=== PATIENT | male | born 1955 | race Caucasian/White ===

== ENCOUNTER 2017-10-31 17:51 | Inpatient (IN) | payer OTHER ==
[~2017-10-31] VITALS: Ht 170.2 cm; Wt 106.6 kg
[~2017-10-31 17:51] MED LIST: ADVAIRDISKUS IH; ALBUTEROL2.5 MG/32 INH; AVELOX 400 MG400 MG PO; CEFTIN500 MG PO; CELECOXIB; DICLOFENAC SODI75 MG PO; DUONEB 2.5-0.5 M3 ML INH; HYDROCODON-ACE1 EAC1 PO; KLOR-CON 1010 MEQ PO; LASIX 20 MG TAB20 MG PO; LEVAQUIN 500 M500 M2 PO; METFORMIN HCL500 MG PO; MUCINEX TA600 MG/TA1 PO; MUCINEX600 MG PO; NIACIN 100MG T100 M1 PO; NICOTINE TRANSD14 M1 TD; NICOTINE TRANSD21 M1 TRANSDERM; OMEPRAZOLE20 M2 PO; PREDNISONE 10 M10 M1 PO; PREDNISONE 10 M10 MG; PROVENTIL; PROZAC20 MG PO; SYMBICORT160 MCG/4. INH; VENTOLIN HFA 1818 GM INH; ZYRTEC10 M5 PO
[2017-10-31 18:05] VITALS: BP 132/68
[2017-10-31 18:30] LABS: HEMATOCRIT 47.7 % (42.0-52.0); MCH 27.3 pg (26.0-34.0); MCHC 31.5 g/dL (28.0-37.0); MCV 86.6 fL (80.0-100.0); MPV 7.5 fl. (7.2-11.1); NUCLEATED RBCS 0 /100WBC; PLATELET COUNT* 170 thou/uL (150-400); RBC 5.51 mil/uL (4.50-6.00); RDW-CV 14.7 % (10.5-14.5)
[2017-10-31 18:40] LABS: ANION GAP 10 mmol/L (7-16); BUN 9 mg/dL (7-18); CALCIUM 9.2 mg/dL (8.5-10.1); CHLORIDE 96 mmol/L (98-107); CO2 32 mmol/L (21-32); CREATININE 0.7 mg/dL (0.6-1.3); GLUCOSE 149 mg/dL (70-99); POTASSIUM 3.8 mmol/L (3.5-5.1); SODIUM 138 mmol/L (136-145)
[2017-10-31 18:51] LABS: ALBUMIN 3.7 g/dL (3.4-5.0); ALKALINE PHOSPHATASE 65 U/L (46-116); NT-PRO BRAIN NAT PEPTIDE 100 pg/mL (<300); SGOT 13 U/L (15-37); SGPT 18 U/L (30-65); TOTAL BILIRUBIN 0.9 mg/dL (<0.1-1.0); TOTAL PROTEIN 7.6 g/dL (6.4-8.2); TROPONIN-I LEVEL <0.06 ng/mL (<0.06)
[2017-10-31 18:57] LABS: ABSOLUTE EOSINOPHILS 0.2 thou/uL (0.0-0.7); ABSOLUTE LYMPHOCYTES 0.9 thou/uL (0.8-5.3); ABSOLUTE MONOCYTES 1.8 thou/uL (0.0-1.2); ABSOLUTE NEUTROPHILS 19.1 thou/uL (1.6-8.1); PLATELET ESTIMATE ADEQUATE
[2017-10-31 19:10] LABS: INFLUENZA A ANTIGEN None Detected (None Detect); INFLUENZA B ANTIGEN None Detected (None Detect)
[2017-10-31 21:10] VITALS: BP 128/74
[2017-10-31 21:40] VITALS: BP 131/64
[2017-10-31] MEDS ORDERED: TYLENOL325 MG PO (21:52)
[2017-10-31] MEDS ORDERED: MUCINEX1200 MG PO (21:54)
[2017-10-31] MEDS ORDERED: INCRUSE ELLI62.5 MCG INH (21:55)
[2017-11-01] VITALS: BP 129/68
[2017-11-01 04:00] VITALS: BP 117/67
--- NOTE | 2017-11-01 07:46 | NUR ---
PT WAS ADMITTED TO ROOM 207 DURING THIS SHIFT; VSS, A+O X4 AND ON 4L O2 NC. HE IS ABLE TO COMMUNICATE HIS NEEDS TO STAFF EFFECTIVELY. CURRRENT PAIN MEDICATION REGIMEN HAS BEEN ADEQUATE FOR CONTROLLING HIS PAIN UP TO THIS TIME.
[2017-11-01 08:31] VITALS: BP 120/72
--- NOTE | 2017-11-01 08:46 | NUR ---
ASSUMED CARE OF PT AROUND 0700 THIS AM. REFER TO ASSESSMENT. VSS. PT WEARS HOME CPAP AT NOC. 4L O2/NC DURING DAY. REPORTS HOME DOSE 3-4 L. PT UP AD PEDRO LUIS. TELE SR W/ BBB. PT VOICES NO CONCERNS THIS AM. CLWR. WCTM.
[2017-11-01 11:46] VITALS: BP 127/67
--- NOTE | 2017-11-01 14:25 | NUR ---
CM ASSESSMENT: Pt was asleep when CM went to assess, spoke with Pt's on the phone. Pt is normally independent with ADLs, continues to drive. states that he is able to do most things, but tends to tire easy, available to assist as needed. Pt wears home o2 and has a Trilogy through [employer]. Pt also has a home neb. No other DME equipment. Hx of [facility]. No hx of SNF. Per , goal is for Pt to return home once medically stable for dc. Following
--- NOTE | 2017-11-01 16:25 | NUR ---
PT TO MOVE TO ROOM 308. REPORT GIVEN TO ONCOMING NURSE. PT WILL BE TRANSFERRED WITH ALL BELONGINGS. NO OTHER CONCERNS AT THIS TIME. CLWR. WCTM.
[2017-11-01 16:30] VITALS: BP 97/79
--- NOTE | 2017-11-01 16:39 | EKG ---
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1955 Requested By: Lila Shaikh Order Number: [id number] MD: Abhinav Villasenor Measurements Intervals [place] Rate: 97 P: -34 [place]: 144 QRS: 148 QRSD: 160 T: -11 QT: 414 QTc: 526 Interpretive Statements Sinus rhythm Probable left atrial enlargement RBBB and LPFB Compared to ECG 03/29/2016 16:08:13 Sinus tachycardia no longer present Electronically Signed On 11-01-2017 16:39:39 [employer] RE[employer] by Abhinav Villasenor [email or web address] <ELECTRONICALLY SIGNED> By: Abhinav Villasenor MD, [facility] 11/01/17 1639 10 10 Abhinav Villasenor MD, [facility] /EPI
[2017-11-01 17:30] VITALS: BP 126/55
--- NOTE | 2017-11-01 18:29 | NUR ---
PT TRANSFERED TO ROOM 308 AT APPROX 1700, RECIEVED REPORT FROM HERNAN KRAUSE. PT A/O X4, UP AD PEDRO LUIS IN ROOM, ON 4L O2 PER NC. LUNGS DIM, CLR. PT C/O SOME PAIN IN UPPER ABDOMEN/RIBS. PT GIVEN PAIN MEDS. TEMP 99.9 AX, ALL OTHER VSS. WILL CONTINUE WITH PLAN OF CARE.
[2017-11-02 00:24] VITALS: BP 122/65
[2017-11-02 04:47] LABS: CALCIUM 8.5 mg/dL (8.5-10.1); CREATININE 0.8 mg/dL (0.6-1.3); MAGNESIUM 2.2 mg/dL (1.8-2.4); POTASSIUM 4.1 mmol/L (3.5-5.1)
[2017-11-02 04:56] LABS: HEMATOCRIT 42.9 % (42.0-52.0); HEMOGLOBIN 13.7 gm/dL (14.0-18.0); MCH 27.2 pg (26.0-34.0); MCHC 31.9 g/dL (28.0-37.0); MCV 85.3 fL (80.0-100.0); MPV 7.5 fl. (7.2-11.1); RBC 5.04 mil/uL (4.50-6.00); RDW-CV 14.6 % (10.5-14.5); WBC 14.3 thou/uL (4.0-11.0)
[2017-11-02 07:40] VITALS: BP 104/61
[2017-11-02 16:00] VITALS: BP 112/61
--- NOTE | 2017-11-02 18:51 | NUR ---
PATIENT A&OX4, 3L O2 VIA NC, IV LEFT AC SALINE LOCK WITH IV ABX. UP AD PEDRO LUIS, STEADY GAIT. NO C/O PAIN/N/V. NO OTHER CONCERNS AT THIS TIME. APPROPRIATE AND COOPORATIVE WITH CARE.
[2017-11-03] VITALS: BP 113/66
--- NOTE | 2017-11-03 04:30 | NUR ---
PATIENT SLEPT WELL DURING THIS SHIFT. PT DENIES PAIN/NAUSEA. PT ON O2 @ 4 LITERS PER NASAL CANNULA. PT IS UP AD PEDRO LUIS IN ROOM. PT WITH DIMINISHED LUNG SOUNDS. FREQUENTLY USED ITEMS AND CALL LIGHT WITHIN REACH. SIDERAILS UPX2. WILL CONTINUE TO MONITOR.
[2017-11-03 04:44] LABS: ABSOLUTE BASOPHILS 0.1 thou/uL (0.0-0.2); ABSOLUTE EOSINOPHILS 0.4 thou/uL (0.0-0.7); ABSOLUTE LYMPHOCYTES 1.9 thou/uL (0.8-5.3); ABSOLUTE MONOCYTES 1.2 thou/uL (0.0-1.2); ABSOLUTE NEUTROPHILS 7.2 thou/uL (1.6-8.1); BASOPHILS 0.8 %; EOSINOPHILS 3.3 %; HEMATOCRIT 38.8 % (42.0-52.0); HEMOGLOBIN 12.9 gm/dL (14.0-18.0); LYMPHOCYTES 17.6 %; MCH 27.7 pg (26.0-34.0); MCHC 33.2 g/dL (28.0-37.0); MCV 83.2 fL (80.0-100.0); MONOCYTES 11.1 %; MPV 7.6 fl. (7.2-11.1); NUCLEATED RBCS 0 /100WBC; PLATELET COUNT* 154 thou/uL (150-400); POLYS 67.2 %; RBC 4.66 mil/uL (4.50-6.00); RDW-CV 14.3 % (10.5-14.5); WBC 10.8 thou/uL (4.0-11.0)
[2017-11-03 05:14] LABS: ALBUMIN 2.8 g/dL (3.4-5.0); CALCIUM 8.5 mg/dL (8.5-10.1); CREATININE 0.7 mg/dL (0.6-1.3); POTASSIUM 3.5 mmol/L (3.5-5.1); TOTAL BILIRUBIN 0.2 mg/dL (<0.1-1.0); TOTAL PROTEIN 6.5 g/dL (6.4-8.2)
[2017-11-03 08:25] VITALS: BP 122/62
--- NOTE | 2017-11-03 09:23 | NUR ---
P.T. ORDERS RECEIVED. CHART REVIEWED. NSG NOTES, NSG, AND PT INDICATE PT UP AD PEDRO LUIS W/ STEADY GAIT. PT REPORTS NO DIFFICULTIES OR CONCERNS WITH MOBILITY. NO ACUTE P.T. INTERVENTION INDICATED AT THIS TIME.
--- NOTE | 2017-11-03 09:43 | NUR ---
OT ORDERS RECEIVED. CHART REVIEWED. PT AND NURSING REPORT NO CONCERN. THERAPIST TALKED WITH PT REGARDING SELF CARE AND ADLS TO RETURN HOME. PT AGAIN, REPORTS NO CONCERNS. NO ACUTE OT INTERVENTION INDICATED.
[2017-11-03 12:13] VITALS: BP 113/66
[2017-11-03] MEDS ORDERED: PROTONIX40 M1 PO (12:21)
[2017-11-03] MEDS ORDERED: NICOTINE TRANSD14 M1 TRANSDERM (12:21)
[2017-11-03] MEDS ORDERED: LEVAQUIN 750 M750 MG PO (12:22)
[2017-11-03] MEDS ORDERED: PREDNISONE 10 M10 MG PO (12:24)
--- NOTE | 2017-11-03 13:20 | NUR ---
PATIENT GIVEN DISCHARGE AND PRESCRIPTIONS AT THIS TIME. PATIENT AND FAMILY VERBALIZED UNDERSTANDING IN REGARDS TO FOLLOW UP APPOINTMENTS, AND NEW MEDICATIONS. PATIENT DISCHARGED TO HOME WITH ALL BELONGINGS. ESCORTED OFF NURSING UNIT VIA WHEELCHAIR WITH NURSING STAFF.
== END 2017-11-03 13:25 | disposition home or self-care (01) | DRG 871 ==
LOC: M.ERS 17:51 → M.2W 19:29 → M.TBA-ER 19:29 → M.2W 21:15 → M.3W 11-01 16:31
PROVIDERS: Internal Medicine; Nurse Practitioner Family; ADMIT Internal Medicine
DX: A41.9 Sepsis, unspecified organism (principal); J96.21 Acute and chronic respiratory failure with hypoxia; J15.6 Pneumonia due to other Gram-negative bacteria; J44.0 Chronic obstructive pulmonary disease with (acute) lower respiratory infection; Z96.653 Presence of artificial knee joint, bilateral; F17.210 Nicotine dependence, cigarettes, uncomplicated; E11.9 Type 2 diabetes mellitus without complications; Z79.899 Other long term (current) drug therapy

== ENCOUNTER 2019-01-18 10:19 | Inpatient (IN) | payer OTHER ==
[~2019-01-18] VITALS: Ht 152.4 cm; Wt 115.2 kg
[~2019-01-18 10:19] MED LIST changes: +INCRUSE ELLI62.5 MCG INH; +LEVAQUIN 750 M750 MG PO; +MUCINEX1200 MG PO; +NICOTINE TRANSD14 M1 TRANSDERM; +PREDNISONE 10 M10 MG PO; +PROTONIX40 M1 PO; -ZYRTEC10 M5 PO
[2019-01-18 10:25] VITALS: BP 165/88
[2019-01-18] MEDS ORDERED: KLOR-CON 1010 MEQ PO (10:40)
[2019-01-18] MEDS ORDERED: INCRUSE ELLI62.5 MCG INH (10:40)
[2019-01-18] MEDS ORDERED: MUCINEX1200 MG PO (10:40)
[2019-01-18] MEDS ORDERED: D3 + K2 DOTS 11 EACH PO (10:41)
[2019-01-18] MEDS ORDERED: APAP650 PO (10:41)
[2019-01-18] MEDS ORDERED: CHILDREN'S ASPI81 M1 PO (10:41)
[2019-01-18] MEDS ORDERED: GEMFIBROZIL 60600 M1 PO (10:42)
[2019-01-18] MEDS ORDERED: LISINOPRIL10 MG PO (10:42)
[2019-01-18] MEDS ORDERED: XALATAN2.5 ML OPHTHALMIC (10:42)
[2019-01-18] MEDS ORDERED: ZYRTEC10 M4 PO (10:42)
[2019-01-18] MEDS ORDERED: IBUPROFEN 800800 M1 PO (10:43)
[2019-01-18] MEDS ORDERED: VENTOLIN HFA 1818 GM INH (10:43)
[2019-01-18 11:08] LABS: ABSOLUTE BASOPHILS 0.1 thou/uL (0.0-0.2); ABSOLUTE EOSINOPHILS 0.2 thou/uL (0.0-0.7); ABSOLUTE LYMPHOCYTES 1.6 thou/uL (0.8-5.3); ABSOLUTE MONOCYTES 0.8 thou/uL (0.0-1.2); ABSOLUTE NEUTROPHILS 5.1 thou/uL (1.6-8.1); BASOPHILS 1.3 %; HEMATOCRIT 37.6 % (42.0-52.0); HEMOGLOBIN 12.8 gm/dL (14.0-18.0); MCH 27.9 pg (26.0-34.0); MCHC 34.1 g/dL (28.0-37.0); MCV 81.8 fL (80.0-100.0); MONOCYTES 9.6 %; MPV 7.8 fl. (7.2-11.1); NUCLEATED RBCS 0 /100WBC; PLATELET COUNT* 209 thou/uL (150-400); POLYS 65.1 %; RBC 4.59 mil/uL (4.50-6.00); RDW-CV 14.8 % (10.5-14.5); WBC 7.8 thou/uL (4.0-11.0)
[2019-01-18 11:10] VITALS: BP 118/55
[2019-01-18 11:16] LABS: PROTIME 9.8 Seconds (9.20-11.50)
[2019-01-18 11:23] LABS: BE 3.2 mmol/L (-2 to +3); PO2 77.2 mmHg (75.0-100.0); pH 7.346 (7.340-7.450)
[2019-01-18 11:24] LABS: PCO2 56.3 mmHg (35.0-45.0)
[2019-01-18 11:26] LABS: ANION GAP 7 mmol/L (7-16); BUN 13 mg/dL (7-18); CALCIUM 8.6 mg/dL (8.5-10.1); CHLORIDE 100 mmol/L (98-107); CO2 31 mmol/L (21-32); CREATININE 0.8 mg/dL (0.6-1.3); GLUCOSE 374 mg/dL (70-99); POTASSIUM 4.5 mmol/L (3.5-5.1); SODIUM 138 mmol/L (136-145); TROPONIN-I LEVEL <0.06 ng/mL (<0.06)
[2019-01-18 11:29] LABS: ALBUMIN 3.5 g/dL (3.4-5.0); ALKALINE PHOSPHATASE 78 U/L (46-116); MAGNESIUM 1.9 mg/dL (1.8-2.4); NT-PRO BRAIN NAT PEPTIDE 46 pg/mL (<300); TOTAL BILIRUBIN 0.3 mg/dL (<0.1-1.0); TOTAL PROTEIN 7.4 g/dL (6.4-8.2)
[2019-01-18 11:40] LABS: URINE BILIRUBIN NEGATIVE (Negative); URINE BLOOD NEGATIVE (Negative); URINE CLARITY CLEAR; URINE COLOR YELLOW; URINE GLUCOSE-RANDOM 3+ (Negative); URINE KETONES NEGATIVE (Negative); URINE LEUKOCYTES-REFLEX NEGATIVE (Negative); URINE NITRITE-REFLEX NEGATIVE (Negative); URINE PROTEIN NEGATIVE (Negative); URINE UROBILINOGEN 0.2 E.U./dl (0.2-1.0)
[2019-01-18 12:13] LABS: SGOT 16 U/L (15-37); SGPT 28 U/L (30-65)
[2019-01-18 14:51] VITALS: BP 135/77
--- NOTE | 2019-01-18 15:19 | 2DMMODE ---
[place] [address] 2 D/M-MODE ECHOCARDIOGRAM Name: DEMETRIS SERRA Room: [address] IN [facility]#: [id number] Admission: 01/18/19 Attend Phys: Remi Carpenter, Discharge: Date of : 57 Date of Service: 01/18/19 1519 Report #: [id number] THIS REPORT FOR: //name// APPROVED REPORT Study performed: 01/18/2019 13:56:51 EXAM: Comprehensive 2D, Doppler, and color-flow Echocardiogram Patient Location: In-Patient Room #: er Status: routine BSA: 2.25 HR: 92 bpm BP: 124/66 mmHg Rhythm: NSR Other Information Study Quality: Good Indications Dyspnea 2D Dimensions IVSd: 13.46 (7-11mm) LVOT Diam: 19.69 (18-24mm) LVDd: 56.44 mm PWd: 11.18 (7-11mm) Ascending Ao: 37.96 (22-36mm) LVDs: 28.00 (25-40mm) Aortic Root: 37.58 mm Volumes Left Atrial Volume (Systole) LA ESV Index: 27.00 mL/m2 Aortic Valve AoV Peak Ward.: 1.81 m/s AO Peak Gr.: 13.09 mmHg LVOT Max P.89 mmHg AO Mean Gr.: 7.08 mmHg LVOT Mean P.40 mmHg LVOT Max V: 1.31 m/s AO V2 VTI: 29.96 cm LVOT Mean V: 0.84 m/s RENATA (VTI): 2.20 cm2 LVOT V1 VTI: 21.63 cm Mitral Valve E/A Ratio: 0.89 MV Decel. Time: 175.31 ms MV E Max Ward.: 0.92 m/[place] [address] 2 D/M-MODE ECHOCARDIOGRAM Name: DEMETRIS SERRA Room: [address] IN .R.#: [id number] Admission: 01/18/19 Attend Phys: Remi Carpenter, Discharge: Date of : 57 Date of Service: 01/18/19 1519 Report #: [id number] MV PHT: 50.84 ms MVA (PHT): 4.33 cm2 TDI E/Lateral E': 6.57 E/Medial E': 7.67 Medial E' Ward.: 0.12 m/s Lateral E' Ward.: 0.14 m/s Pulmonary Valve PV Peak Ward.: 1.14 m/s PV Peak Gr.: 5.24 mmHg Left Ventricle The left ventricle is normal size. There is left ventricular systolic dysynergy consistent with underlying bundle branch block. There is normal left ventricular wall thickness. Left ventricular systolic function is normal. LVEF is 55-60%. Grade I - abnormal relaxation pattern. Right Ventricle The right ventricle is normal size. The right ventricular systolic function is normal. Atria Left atrium is moderately dilated. Right atrium is moderately dilated. Aortic Valve Mild aortic valve sclerosis. No aortic regurgitation is present. There is no aortic valvular stenosis. Mitral Valve The mitral valve is normal in structure. There is no mitral valve regurgitation noted. No evidence of mitral valve stenosis. Tricuspid Valve The tricuspid valve is normal in structure. Unable to assess PA pressure. Trace tricuspid regurgitation. Pulmonic Valve The pulmonary valve is normal in structure. There is no pulmonic valvular regurgitation. Great Vessels The aortic root is normal in size. IVC is normal in size and collapses >50% [place] [address] 2 D/M-MODE ECHOCARDIOGRAM Name: DEMETRIS SERRA Room: [address] IN [facility]#: [id number] Admission: 01/18/19 Attend Phys: Remi Carpenter, Discharge: Date of : 57 Date of Service: 01/18/19 1519 Report #: [id number] Pericardium There is no pericardial effusion. <Conclusion> The left ventricle is normal size. There is normal left ventricular wall thickness. Left ventricular systolic function is normal. LVEF is 55-60%. Grade I - abnormal relaxation pattern. There is left ventricular systolic dysynergy consistent with underlying bundle branch block. Left atrium is moderately dilated. Right atrium is moderately dilated. Mild aortic valve sclerosis. There is no aortic valvular stenosis. Trace tricuspid regurgitation. <ELECTRONICALLY SIGNED> By: Pablo Morley MD, FACC 01/18/19 1519 1519 151 Pablo Morley MD, FACC /INF
[2019-01-18 15:30] VITALS: BP 131/68
--- NOTE | 2019-01-18 18:25 | EKG ---
[place] [address] ELECTROCARDIOGRAM REPORT Name: DEMETRIS SERRA Room: [address] ADM IN M.R.#: [id number] Admission: 01/18/19 Attend Phys: Remi Carpenter MD Discharge: Date of : 57 Report #: [id number] THIS REPORT FOR: //name// [facility] ED Test Date: 2019-01-18 Test Time: 10:25:19 Pat Name: DEMETRIS SERRA Department: Room: [facility] Gender: Resident Care Associate: Antwan BERGERON : 1955 Requested By: Rosemarie Brito Order Number: [id number] Gaby MD: Pablo Morley Measurements Intervals [place] Rate: 97 P: -12 [place]: 172 QRS: 113 QRSD: 163 T: -23 QT: 384 QTc: 488 Interpretive Statements Sinus rhythm RBBB and LPFB Baseline wander in lead(s) V2 Compared to ECG 10/31/2017 19:11:29 No significant changes Electronically Signed On 01-18-2019 18:24:57 CDT by Pablo Morley [email or web address] <ELECTRONICALLY SIGNED> By: Pablo Morley MD, FACC 01/18/19 1824 1025 1025 Pablo Morley MD, FAC /EPI
[2019-01-18 19:55] VITALS: BP 129/71
[2019-01-19] VITALS (7 sets, daily range): BP systolic 121–132; BP diastolic 61–69
[2019-01-19 02:09] LABS: GLYCOHEMOGLOBIN (HGB A1C) 8.3 % (4.8-5.6)
[2019-01-19 05:12] LABS: CHOLESTEROL 290 mg/dL (<200); HDL CHOLESTEROL 45 mg/dL (>40); TC:HDL 6.4 Ratio (Not establshd); TRIGLYCERIDE 958 mg/dL (<150); VLDL 192 mg/dL (<40)
[2019-01-19 05:14] LABS: LDL CHOLESTEROL ND mg/dL (<100); SERUM ASSESSMENT Slight Lipemia
[2019-01-20] VITALS: BP 115/61
[2019-01-20 04:00] VITALS: BP 106/56
[2019-01-20 08:00] VITALS: BP 111/60; BP 128/73
[2019-01-20 12:00] VITALS: BP 105/63
[2019-01-20 16:00] VITALS: BP 104/63
[2019-01-20 20:00] VITALS: BP 126/66
[2019-01-21] VITALS: BP 110/56
[2019-01-21 04:00] VITALS: BP 109/48
[2019-01-21 05:34] LABS: CALCIUM 8.6 mg/dL (8.5-10.1); CREATININE 0.8 mg/dL (0.6-1.3); MAGNESIUM 2.3 mg/dL (1.8-2.4); POTASSIUM 4.7 mmol/L (3.5-5.1)
[2019-01-21 08:00] VITALS: BP 109/61
[2019-01-21] MEDS ORDERED: ATORVASTATIN CA80 MG PO (09:53)
[2019-01-21] MEDS ORDERED: ZETIA10 MG PO (09:53)
[2019-01-21] MEDS ORDERED: METFORMIN HCL1000 MG PO (09:53)
[2019-01-21] MEDS ORDERED: AZITHROMYCIN 2250 MG PO (09:53)
[2019-01-21] MEDS ORDERED: CEFDINIR300 MG PO (09:53)
[2019-01-21] MEDS ORDERED: GLIPIZIDE 10 MG10 MG PO (09:53)
[2019-01-21] MEDS ORDERED: SINGULAIR 10 MG10 M1 PO (09:53)
[2019-01-21] MEDS ORDERED: PREDNISONE 10 M10 MG PO (09:54)
[2019-01-21] MEDS ORDERED: GLUCOTROL5 MG PO (09:55)
[2019-01-21 12:00] VITALS: BP 131/72
[2019-01-21] MEDS ORDERED: TYLENOL325 MG PO (15:35)
[2019-01-21] MEDS ORDERED: LIPITOR40 MG PO (15:36)
[2019-01-21] MEDS ORDERED: ZYRTEC10 M5 PO (15:46)
[2019-01-21 15:48] VITALS: BP 131/72
== END 2019-01-21 18:10 | disposition home or self-care (01) | DRG 177 ==
LOC: M.ERS 10:19 → M.TBA-ER 12:07 → M.2W 12:07
PROVIDERS: Personal Emergency Response Attendant; ADMIT Internal Medicine
PROC: 5A09357 Assistance with Respiratory Ventilation, Less than 24 Consecutive Hours, Continuous Positive Airway Pressure (ICD-10-PCS; principal; 2019-01-19)
PROC: 5A09357 Assistance with Respiratory Ventilation, Less than 24 Consecutive Hours, Continuous Positive Airway Pressure (ICD-10-PCS; 2019-01-20)
DX: J15.6 Pneumonia due to other Gram-negative bacteria (principal); J96.22 Acute and chronic respiratory failure with hypercapnia; J96.21 Acute and chronic respiratory failure with hypoxia; J44.0 Chronic obstructive pulmonary disease with (acute) lower respiratory infection; J44.1 Chronic obstructive pulmonary disease with (acute) exacerbation; I50.32 Chronic diastolic (congestive) heart failure; Z68.42 Body mass index [BMI] 45.0-49.9, adult; Z96.653 Presence of artificial knee joint, bilateral; G47.33 Obstructive sleep apnea (adult) (pediatric); F17.210 Nicotine dependence, cigarettes, uncomplicated; E66.01 Morbid (severe) obesity due to excess calories; E11.65 Type 2 diabetes mellitus with hyperglycemia; I11.0 Hypertensive heart disease with heart failure; E78.5 Hyperlipidemia, unspecified; E78.1 Pure hyperglyceridemia; Z79.84 Long term (current) use of oral hypoglycemic drugs; Z79.82 Long term (current) use of aspirin

== ENCOUNTER 2019-07-03 21:57 | Inpatient (IN) | payer OTHER ==
[~2019-07-03] VITALS: Ht 170.2 cm; Wt 117.9 kg
[~2019-07-03 21:57] MED LIST changes: +APAP650 PO; +ATORVASTATIN CA80 MG PO; +AZITHROMYCIN 2250 MG PO; +CEFDINIR300 MG PO; +CHILDREN'S ASPI81 M1 PO; +D3 + K2 DOTS 11 EACH PO; +GEMFIBROZIL 60600 M1 PO; +GLIPIZIDE 10 MG10 MG PO; +GLUCOTROL5 MG PO; +IBUPROFEN 800800 M1 PO; +LIPITOR40 MG PO; +LISINOPRIL10 MG PO; +METFORMIN HCL1000 MG PO; +SINGULAIR 10 MG10 M1 PO; +TYLENOL325 MG PO; +XALATAN2.5 ML OPHTHALMIC; +ZETIA10 MG PO; +ZYRTEC10 M4 PO; +ZYRTEC10 M5 PO
[2019-07-03 22:02] VITALS: BP 177/74
[2019-07-03] MEDS ORDERED: GLIPIZIDE 10 MG10 MG PO (22:15)
[2019-07-03] MEDS ORDERED: GLUCOTROL5 MG PO (22:15)
[2019-07-03 22:34] LABS: ABSOLUTE BASOPHILS 0.1 thou/uL (0.0-0.2); ABSOLUTE EOSINOPHILS 0.3 thou/uL (0.0-0.7); ABSOLUTE LYMPHOCYTES 1.9 thou/uL (0.8-5.3); ABSOLUTE MONOCYTES 0.9 thou/uL (0.0-1.2); ABSOLUTE NEUTROPHILS 6.5 thou/uL (1.6-8.1); BASOPHILS 1.5 %; EOSINOPHILS 2.8 %; HEMATOCRIT 38.9 % (42.0-52.0); HEMOGLOBIN 12.9 gm/dL (14.0-18.0); LYMPHOCYTES 19.5 %; MCH 27.2 pg (26.0-34.0); MCHC 33.2 g/dL (28.0-37.0); MPV 7.1 fl. (7.2-11.1); NUCLEATED RBCS 0 /100WBC; PLATELET COUNT* 228 thou/uL (150-400); POLYS 67.2 %; RBC 4.75 mil/uL (4.50-6.00); RDW-CV 15.8 % (10.5-14.5); WBC 9.6 thou/uL (4.0-11.0)
[2019-07-03 22:44] LABS: ANION GAP 8 mmol/L (7-16); APTT 23.8 Seconds (25.0-31.3); BUN 23 mg/dL (7-18); CALCIUM 8.6 mg/dL (8.5-10.1); CHLORIDE 101 mmol/L (98-107); CO2 31 mmol/L (21-32); CREATININE 0.9 mg/dL (0.6-1.3); GLUCOSE 259 mg/dL (70-99); INR 0.9; POTASSIUM 4.9 mmol/L (3.5-5.1); PROTIME 9.6 Seconds (9.20-11.50); SODIUM 140 mmol/L (136-145)
[2019-07-03 22:55] LABS: ALBUMIN 3.5 g/dL (3.4-5.0); ALKALINE PHOSPHATASE 87 U/L (46-116); LIPASE 127 U/L (73-393); MAGNESIUM 1.9 mg/dL (1.8-2.4); NT-PRO BRAIN NAT PEPTIDE 28 pg/mL (<300); SGOT 13 U/L (15-37); SGPT 30 U/L (30-65); TOTAL BILIRUBIN 0.2 mg/dL (<0.1-1.0); TOTAL PROTEIN 7.2 g/dL (6.4-8.2); TROPONIN-I LEVEL <0.06 ng/mL (<0.06)
[2019-07-03 23:23] VITALS: BP 127/54
[2019-07-03 23:45] VITALS: BP 128/66
[2019-07-04 07:50] VITALS: BP 125/53
[2019-07-04 09:23] LABS: MAGNESIUM 2.1 mg/dL (1.8-2.4); POTASSIUM 5.8 mmol/L (3.5-5.1)
--- NOTE | 2019-07-04 11:18 | EKG ---
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1955 Requested By: Carlos Carranza Order Number: [id number] MD: Abhinav Villasenor Measurements Intervals [place] Rate: 103 P: -29 [place]: 167 QRS: 120 QRSD: 150 T: -8 QT: 374 QTc: 490 Interpretive Statements Sinus tachycardia Right bundle branch block and left posterior fasicular block Baseline wander in lead(s) V1 Compared to ECG 01/18/2019 10:25:19 Sinus rhythm no longer present Electronically Signed On 07-04-2019 11:18:09 CDT by Abhinav Villasenor [email or web address] <ELECTRONICALLY SIGNED> By: Abhinav Villasenor MD, [facility] 07/04/19 1118 05 Abhinav Villasenor MD, [facility] /EPI
[2019-07-04 14:25] VITALS: BP 111/51
[2019-07-04 20:00] VITALS: BP 138/65
[2019-07-05 04:13] LABS: HEMATOCRIT 36.5 % (42.0-52.0); HEMOGLOBIN 11.9 gm/dL (14.0-18.0); MCH 26.8 pg (26.0-34.0); MCHC 32.7 g/dL (28.0-37.0); MCV 81.9 fL (80.0-100.0); MPV 7.3 fl. (7.2-11.1); RBC 4.46 mil/uL (4.50-6.00); RDW-CV 15.8 % (10.5-14.5); WBC 14.6 thou/uL (4.0-11.0)
[2019-07-05 04:21] LABS: CALCIUM 8.6 mg/dL (8.5-10.1); CREATININE 0.9 mg/dL (0.6-1.3); MAGNESIUM 2.1 mg/dL (1.8-2.4)
[2019-07-05 07:08] LABS: GLYCOHEMOGLOBIN (HGB A1C) 7.2 % (4.8-5.6)
[2019-07-05 08:00] VITALS: BP 120/69
[2019-07-05 16:00] VITALS: BP 146/68
[2019-07-05 22:20] VITALS: BP 118/64
[2019-07-06 07:55] VITALS: BP 141/77
[2019-07-06] MEDS ORDERED: CEFDINIR300 MG PO (12:44)
[2019-07-06] MEDS ORDERED: PREDNISONE 10 M10 MG PO (12:44)
== END 2019-07-06 13:55 | disposition home or self-care (01) | DRG 177 ==
LOC: M.ERS 21:57 → M.TBA-ER 22:49 → M.3W 22:49
PROVIDERS: Family Medicine; Internal Medicine; ADMIT Internal Medicine
PROC: 5A09357 Assistance with Respiratory Ventilation, Less than 24 Consecutive Hours, Continuous Positive Airway Pressure (ICD-10-PCS; principal; 2019-07-03)
PROC: 5A09357 Assistance with Respiratory Ventilation, Less than 24 Consecutive Hours, Continuous Positive Airway Pressure (ICD-10-PCS; 2019-07-04)
PROC: 5A09357 Assistance with Respiratory Ventilation, Less than 24 Consecutive Hours, Continuous Positive Airway Pressure (ICD-10-PCS; 2019-07-05)
PROC: 5A09357 Assistance with Respiratory Ventilation, Less than 24 Consecutive Hours, Continuous Positive Airway Pressure (ICD-10-PCS; 2019-07-06)
DX: J15.6 Pneumonia due to other Gram-negative bacteria (principal); J96.21 Acute and chronic respiratory failure with hypoxia; I50.33 Acute on chronic diastolic (congestive) heart failure; J44.1 Chronic obstructive pulmonary disease with (acute) exacerbation; Z68.41 Body mass index [BMI] 40.0-44.9, adult; J44.0 Chronic obstructive pulmonary disease with (acute) lower respiratory infection; Z96.653 Presence of artificial knee joint, bilateral; M19.90 Unspecified osteoarthritis, unspecified site; G47.33 Obstructive sleep apnea (adult) (pediatric); E78.5 Hyperlipidemia, unspecified; E66.01 Morbid (severe) obesity due to excess calories; F17.210 Nicotine dependence, cigarettes, uncomplicated; F32.9 Major depressive disorder, single episode, unspecified; T38.0X5A Adverse effect of glucocorticoids and synthetic analogues, initial encounter; Y92.89 Other specified places as the place of occurrence of the external cause; E11.65 Type 2 diabetes mellitus with hyperglycemia

== ENCOUNTER → 2019-07-12 | Outpatient (CLI) | payer OTHER ==
[~2019-07-12] MED LIST changes: +DALIRESP250 MCG PO; +JARDIANCE10 MG PO; +NORCO 5-325 TA1 EAC1 PO
== END ==
LOC: M.CT 12:28
DX: J43.2 Centrilobular emphysema (principal); I70.0 Atherosclerosis of aorta; K76.0 Fatty (change of) liver, not elsewhere classified

== ENCOUNTER 2019-07-28 17:08 | Emergency (ER) | payer OTHER ==
[~2019-07-28] VITALS: Ht 170.2 cm; Wt 115.7 kg
[~2019-07-28 17:08] MED LIST changes: -DALIRESP250 MCG PO; -JARDIANCE10 MG PO; -NORCO 5-325 TA1 EAC1 PO
[2019-07-28] MEDS ORDERED: JARDIANCE10 MG PO (18:17)
[2019-07-28] MEDS ORDERED: DALIRESP250 MCG PO (18:18)
[2019-07-28] MEDS ORDERED: NORCO 5-325 TA1 EAC1 PO (19:27)
[2019-07-28 19:52] VITALS: BP 135/87
== END 2019-07-28 19:58 | disposition home or self-care (01) ==
LOC: M.ERS 17:08
DX: S16.1XXA Strain of muscle, fascia and tendon at neck level, initial encounter (principal); S00.01XA Abrasion of scalp, initial encounter; M25.552 Pain in left hip; E78.5 Hyperlipidemia, unspecified; J44.9 Chronic obstructive pulmonary disease, unspecified; M19.90 Unspecified osteoarthritis, unspecified site; E11.9 Type 2 diabetes mellitus without complications; G47.33 Obstructive sleep apnea (adult) (pediatric); I50.32 Chronic diastolic (congestive) heart failure; E66.01 Morbid (severe) obesity due to excess calories; F17.210 Nicotine dependence, cigarettes, uncomplicated; Z87.01 Personal history of pneumonia (recurrent); Z68.39 Body mass index [BMI] 39.0-39.9, adult; W10.9XXA Fall (on) (from) unspecified stairs and steps, initial encounter; Y93.89 Activity, other specified; Y92.89 Other specified places as the place of occurrence of the external cause; Y99.8 Other external cause status